=== PATIENT | female | born 1960 | race Hispanic/Latino ===

== ENCOUNTER → 2018-04-12 | Outpatient (CLI) | payer MEDICARE ==
[~2018-04-12] MED LIST: AEC81 PO; AMLO5TAB7 PO; CILO50TA PO; CLOP75TA32 PO; EZET10 PO; GLIP10TA9 PO; INSU3INS5 SQ; LEVO50 PO; LOSA100T20 PO; METF-527 PO; METO-408 PO; MOME17N NS; ROSU40 PO; SITA100T12 PO
== END | disposition home or self-care (01) ==
LOC: RAH 08:23
PROVIDERS: ATTEND Internal Medicine Nephrology
DX: K76.0 Fatty (change of) liver, not elsewhere classified (principal); I10 Essential (primary) hypertension
CPT/HCPCS: 76705

== ENCOUNTER → 2018-09-12 | Outpatient (CLI) | payer MEDICARE ==
[~2018-09-12] VITALS: Ht 157.5 cm; Wt 91.2 kg
[~2018-09-12] MED LIST changes: -AMLO5TAB7 PO; +AMLO5TAB9 PO; -LOSA100T20 PO; +LOSA100T58 PO; +REGADENOSON 0.4 MG/5 ML PF SYG IVP SCH
== END | disposition home or self-care (01) ==
LOC: SHCH 08:43
PROVIDERS: ATTEND Internal Medicine Cardiovascular Disease
DX: I99.8 Other disorder of circulatory system (principal); I10 Essential (primary) hypertension; I25.810 Atherosclerosis of coronary artery bypass graft(s) without angina pectoris
CPT/HCPCS: 78452; 93017; 96374; A9500 ×2; J2785

== ENCOUNTER → 2018-12-31 | Outpatient (CLI) | payer MEDICARE ==
[~2018-12-31] MED LIST changes: +IOHEXOL 350 MG/ML 100ML INFUS..BTL IV ONE; +IOHEXOL-350 50ML VIAL IV ONE; -REGADENOSON 0.4 MG/5 ML PF SYG IVP SCH
== END | disposition home or self-care (01) ==
LOC: RAH 07:40
PROVIDERS: ATTEND Internal Medicine Cardiovascular Disease
DX: I70.203 Unspecified atherosclerosis of native arteries of extremities, bilateral legs (principal); K44.9 Diaphragmatic hernia without obstruction or gangrene; N32.89 Other specified disorders of bladder; Z95.1 Presence of aortocoronary bypass graft; Z96.652 Presence of left artificial knee joint
CPT/HCPCS: 75635; Q9967 ×2

== ENCOUNTER 2019-02-25 06:11 | Day surgery (SDC) | payer MEDICARE ==
[2019-02-21 14:42] VITALS: BP 142/64
[2019-02-21 14:49] LABS: BASOPHILS % (AUTO) 0.6 % (0.0-5.0); HEMATOCRIT 40.1 % (36-48); MEAN CORPUSCULAR HEMOGLOBIN 30.2 pg (27.0-33.0); MEAN CORPUSCULAR HGB CONC 33.3 g/dL (32.0-36.0); MEAN CORPUSCULAR VOLUME 90.6 fL (79-99); NEUTROPHILS % (AUTO) 67.4 % (40.0-77.0); PLATELET COUNT (AUTO) 246 K/uL (130-400); RED BLOOD CELL COUNT(AUTO) 4.43 MIL/uL (4.00-5.50); RED CELL DISTRIBUTION WIDTH 12.9 % (11.0-15.5); WHITE BLOOD COUNT (AUTO) 6.7 K/uL (4.8-10.8)
[2019-02-21 14:58] LABS: INR 0.96 (0.85-1.15); PARTIAL THROMBOPLASTIN TIME 30.5 SEC (26.3-35.5); PROTHROMBIN TIME 10.1 SEC (9.6-11.6)
[2019-02-21 15:11] LABS: CREATININE 0.8 mg/dL (0.5-1.5); POTASSIUM 4.8 mmol/L (3.5-5.1)
[2019-02-21 16:17] LABS: APPEARANCE,URINE Clear (CLEAR); BILIRUBIN,URINE Negative (NEGATIVE); COLOR,URINE Yellow (YELLOW); GLUCOSE, URINE (UA) Negative (NEGATIVE); KETONES,URINE Negative (NEGATIVE); LEUKOCYTE ESTERASE ,URINE Trace (NEGATIVE); NITRATE,URINE Negative (NEGATIVE); OCCULT BLOOD,URINE Negative (NEGATIVE); PH,URINE 7.5 (5.0-8.0); PROTEIN,URINE Negative (NEGATIVE)
[2019-02-21 16:39] LABS: RBC,URINE 0-1 /HPF (0-1)
[2019-02-21 16:40] LABS: BACTERIA,URINE Rare /HPF (None Seen); SQUAMOUS EPITHELIAL CELL,UR Few /HPF (0-2)
--- NOTE | 2019-02-24 10:18 | NUR ---
ABNORMAL UA ABNORMAL UA RESULTS REPORTED TO BINH WAGGONER. NO FURTHER ORDERS GIVEN, MAY PROCEED WITH PLANNED PROCEDURE.
[~2019-02-25] VITALS: Ht 154.9 cm; Wt 88.0 kg
[2019-02-25] VITALS (8 sets, daily range): BP systolic 116–159; BP diastolic 57–80
[~2019-02-25 06:11] MED LIST changes: -EZET10 PO; +EZET10TA13 PO; +INSLAN SQ; -INSU3INS5 SQ; -IOHEXOL 350 MG/ML 100ML INFUS..BTL IV ONE; -IOHEXOL-350 50ML VIAL IV ONE; +SODIUM CHLORIDE 0.9% 500ML 500 ML IV SCH
[2019-02-25] MEDS ORDERED: EZET10TA48 PO (09:03)
[2019-02-25] MEDS ORDERED: RANO10003 PO (09:03)
[2019-02-25] MEDS ORDERED: METF-446 PO (09:03)
[2019-02-25] MEDS ORDERED: ROSU40TA21 PO (09:03)
[2019-02-25] MEDS ORDERED: LEVO50TA11 PO (09:03)
[2019-02-25] MEDS ORDERED: SITA100T12 PO (09:03)
[2019-02-25] MEDS ORDERED: CILO50TA PO (09:03)
[2019-02-25] MEDS ORDERED: ASPI-555 PO (09:03)
[2019-02-25] MEDS ORDERED: CLOP75TA14 PO (09:03)
[2019-02-25] MEDS ORDERED: PINDOLOL PO (09:03)
[2019-02-25] MEDS ORDERED: LOSA100T58 PO (09:03)
[2019-02-25] MEDS ORDERED: SODIUM CHLORIDE 0.9% 1000ML 1,000 ML IV ONE (09:19)
[2019-02-25] MEDS ORDERED: NITROGLYCERIN 5 MG/ML 10 ML VIAL IV ONE (10:03)
[2019-02-25] MEDS ORDERED: IOHEXOL-350 75 ML VIAL IV ONE (10:04)
[2019-02-25] MEDS ORDERED: LIDOCAINE HCL 2% 20ML ONE (10:04)
[2019-02-25] MEDS ORDERED: IODIXANOL 320 MG/ML 100 ML VIAL ONE ×2 (10:05→11:46)
[2019-02-25] MEDS ORDERED: MIDAZOLAM HCL 1 MG/ML 2ML VIAL ONE ×2 (10:22→11:41)
[2019-02-25] MEDS ORDERED: MEPERIDINE-PF 25 MG/ML SYG ONE ×2 (10:22→11:41)
[2019-02-25] MEDS ORDERED: HEPARIN SODIUM 1000UNIT/ML 10ML VIAL ONE (11:09)
[2019-02-25] MEDS ORDERED: SODIUM CHLORIDE 0.9% 1000ML 1,000 ML IV SCH (12:26)
[2019-02-25] MEDS ORDERED: DEXTROSE 50%-WATER 50 ML DISP.SYRIN IV PRN (12:30)
[2019-02-25] MEDS ORDERED: GLUCAGON 1MG KIT 1 MG ML IM PRN (12:30)
--- NOTE | 2019-02-25 14:55 | NUR ---
GAVE REPORT TO TERRY LEPE RN NO CONCERNS VOICED
[2019-02-25] MEDS ORDERED: INSULIN HUMULIN R 100 UNIT/ML 3ML SQ SCH (16:30)
--- NOTE | 2019-02-25 18:30 | NUR ---
NURSING: PT IS AAOX3 NO C/O PAIN, STATES ONLY MILD DISCOMFORT TO RT GROIN PUNCTURE SITE, STATES IT FEELS SORE, INFORMED PT SHE WILL HAVE SMALL BRUISE, AND TENDERNESS IS COMMON S/P PROCEDURE. DRESSING TO CATH SITE HAS QUATER SIZE SCANT AMOUNT OF BLEEDING, NO OOZING OR HEMATOMA. EDUCATED PT AND SISTER ON WHAT TO LOOK OUT FOR IF THERE IS ACTIVE BLEEDING OR HEMATOMA,TO LAY FLAT, APPLY PRESSURE TO SITE AND TO CALL 911. BOTH VERBALIZED UNDERSTANDING. PT SITTING AT BEDSIDE, ABLE TO DRESS WITH ASSISTANCE FROM SISTER, DRIVEN HOME BY FAMILY.
== END 2019-02-25 18:30 | disposition home or self-care (01) ==
LOC: DAH 06:11
PROVIDERS: ATTEND Internal Medicine Cardiovascular Disease
DX: I70.212 Atherosclerosis of native arteries of extremities with intermittent claudication, left leg (principal); I25.10 Atherosclerotic heart disease of native coronary artery without angina pectoris; I10 Essential (primary) hypertension; E78.5 Hyperlipidemia, unspecified; E11.9 Type 2 diabetes mellitus without complications; M13.862 Other specified arthritis, left knee; M13.861 Other specified arthritis, right knee; M13.88 Other specified arthritis, other site; Z95.5 Presence of coronary angioplasty implant and graft; Z88.5 Allergy status to narcotic agent; Z79.01 Long term (current) use of anticoagulants; Z79.899 Other long term (current) drug therapy; Z79.4 Long term (current) use of insulin; Z79.82 Long term (current) use of aspirin; Z98.890 Other specified postprocedural states; Z96.652 Presence of left artificial knee joint; Z87.891 Personal history of nicotine dependence; Z82.49 Family history of ischemic heart disease and other diseases of the circulatory system; Z82.3 Family history of stroke
CPT/HCPCS: 36246; 36415; 71045; 75625; 75716; 75774; 80048; 81001; 82948 ×2; 85025; 85610; 85730; 93005; A4606; C1725 ×2; C1760; C1769 ×4; C1887; C1893; C1894 ×2; J1644 ×2; J2175 ×2; J2250 ×2; J3490 ×2; J7030; Q9967 ×3; 36247; 75630; 99156; 99157

== ENCOUNTER → 2020-01-01 | Outpatient (CLI) | payer MEDICARE ==
[~2020-01-01] MED LIST changes: -AEC81 PO; -AMLO5TAB9 PO; +ASPI-556 PO; +CLOP75TA14 PO; -CLOP75TA32 PO; -EZET10TA13 PO; +EZET10TA48 PO; -GLIP10TA9 PO; -LEVO50 PO; +LEVO50TA11 PO; +METF-446 PO; -METF-527 PO; -METO-408 PO; -MOME17N NS; +PINDOLOL PO; +RANO10003 PO; -ROSU40 PO; +ROSU40TA21 PO; -SODIUM CHLORIDE 0.9% 500ML 500 ML IV SCH
== END | disposition home or self-care (01) ==
LOC: SHCH 10:55
PROVIDERS: ATTEND Internal Medicine Cardiovascular Disease
DX: I65.23 Occlusion and stenosis of bilateral carotid arteries (principal); I11.9 Hypertensive heart disease without heart failure
CPT/HCPCS: 93306; 93356; 93880

== ENCOUNTER → 2020-10-04 | Outpatient (CLI) | payer MEDICARE ==
[~2020-10-04] MED LIST changes: +IOHEXOL 350 MG/ML 100ML INFUS..BTL IV ONE; +IOHEXOL-350 50ML VIAL IV ONE
== END | disposition home or self-care (01) ==
LOC: RAH 07:41
PROVIDERS: ATTEND Internal Medicine Cardiovascular Disease
DX: I70.293 Other atherosclerosis of native arteries of extremities, bilateral legs (principal); K44.9 Diaphragmatic hernia without obstruction or gangrene; K76.0 Fatty (change of) liver, not elsewhere classified; K42.9 Umbilical hernia without obstruction or gangrene; K57.30 Diverticulosis of large intestine without perforation or abscess without bleeding; Z95.820 Peripheral vascular angioplasty status with implants and grafts
CPT/HCPCS: 75635; Q9967 ×2

== ENCOUNTER 2022-02-26 16:36 | Emergency (ER) | payer OTHER, MEDICARE ==
[~2022-02-26] VITALS: Ht 157.5 cm; Wt 83.9 kg
[~2022-02-26 16:36] MED LIST changes: -IOHEXOL 350 MG/ML 100ML INFUS..BTL IV ONE; -IOHEXOL-350 50ML VIAL IV ONE
[2022-02-26 16:54] VITALS: BP 155/75
[2022-02-26 17:15] LABS: BASOPHILS % (AUTO) 0.3 % (0.0-5.0); EOSINOPHILS % (AUTO) 0.6 % (0.0-8.0); HEMATOCRIT 39.5 % (36-48); LYMPHOCYTES % (AUTO) 22.6 % (21.0-51.0); MEAN CORPUSCULAR HEMOGLOBIN 31.2 pg (27.0-33.0); MEAN CORPUSCULAR HGB CONC 34.9 g/dL (32.0-36.0); MEAN CORPUSCULAR VOLUME 89.4 fL (79-99); MONOCYTES % (AUTO) 10.6 % (3.0-13.0); NEUTROPHILS % (AUTO) 65.6 % (40.0-77.0); PLATELET COUNT (AUTO) 250 K/uL (130-400); RED BLOOD CELL COUNT(AUTO) 4.42 MIL/uL (4.00-5.50); RED CELL DISTRIBUTION WIDTH 11.5 % (11.0-15.5); WHITE BLOOD COUNT (AUTO) 6.9 K/uL (4.8-10.8)
[2022-02-26 17:26] LABS: CREATININE 1.1 mg/dL (0.5-1.5); POTASSIUM 4.4 mmol/L (3.5-5.1)
[2022-02-26 17:30] LABS: ALBUMIN 3.9 g/dL (3.5-5.0); TOTAL PROTEIN, SERUM 7.3 g/dL (6.0-8.3)
[2022-02-26] MEDS ORDERED: DOCU-116 PO (18:32)
== END 2022-02-26 18:42 | disposition home or self-care (01) ==
LOC: EDH 16:36
DX: K43.9 Ventral hernia without obstruction or gangrene (principal); K59.00 Constipation, unspecified; E11.9 Type 2 diabetes mellitus without complications; E78.00 Pure hypercholesterolemia, unspecified; Z88.5 Allergy status to narcotic agent; Z79.82 Long term (current) use of aspirin; Z79.84 Long term (current) use of oral hypoglycemic drugs; Z79.899 Other long term (current) drug therapy; Z95.1 Presence of aortocoronary bypass graft
CPT/HCPCS: 36415; 74176; 80053; 82550; 83690; 84484; 85025; 93005

== ENCOUNTER 2022-05-05 20:51 | Emergency (ER) | payer OTHER, MEDICARE ==
[~2022-05-05] VITALS: Ht 157.5 cm; Wt 93.9 kg
[~2022-05-05 20:51] MED LIST changes: +DOCU-116 PO
[2022-05-05 20:52] VITALS: BP 159/86
[2022-05-05] MEDS ORDERED: LIDOCAINE HCL-MPF 2% 5ML VIAL IM SCH (22:00)
[2022-05-05] MEDS ORDERED: TETANUS/DIPHTHERIA TOXOID [ADULT] 0.5 ML VIAL IM ONE (22:00)
[2022-05-05] MEDS ORDERED: CEPH500B PO (22:57)
== END 2022-05-05 23:11 | disposition home or self-care (01) ==
LOC: EDH 20:51
DX: S61.211A Laceration without foreign body of left index finger without damage to nail, initial encounter (principal); Z88.5 Allergy status to narcotic agent; E11.9 Type 2 diabetes mellitus without complications; E78.00 Pure hypercholesterolemia, unspecified; I10 Essential (primary) hypertension; I25.2 Old myocardial infarction; Z79.82 Long term (current) use of aspirin; Z79.899 Other long term (current) drug therapy; Z79.4 Long term (current) use of insulin; Z79.84 Long term (current) use of oral hypoglycemic drugs; Z98.890 Other specified postprocedural states; W01.0XXA Fall on same level from slipping, tripping and stumbling without subsequent striking against object, initial encounter; Y93.01 Activity, walking, marching and hiking; Y92.89 Other specified places as the place of occurrence of the external cause; Y99.8 Other external cause status
CPT/HCPCS: 12002; 90471; 90714

== ENCOUNTER 2022-05-06 13:35 | Emergency (ER) | payer OTHER, MEDICARE ==
[~2022-05-06] VITALS: Ht 157.5 cm; Wt 93.9 kg
[~2022-05-06 13:35] MED LIST changes: +CEPH500B PO
[2022-05-06 13:36] VITALS: BP 135/55
== END 2022-05-06 14:16 | disposition home or self-care (01) ==
LOC: EDH 13:35
DX: S61.211D Laceration without foreign body of left index finger without damage to nail, subsequent encounter (principal); E11.9 Type 2 diabetes mellitus without complications; E78.00 Pure hypercholesterolemia, unspecified; I10 Essential (primary) hypertension; I25.2 Old myocardial infarction; Z88.5 Allergy status to narcotic agent; Z79.899 Other long term (current) drug therapy; Z79.82 Long term (current) use of aspirin; Z79.84 Long term (current) use of oral hypoglycemic drugs; Z79.4 Long term (current) use of insulin; Z98.890 Other specified postprocedural states; X58.XXXD Exposure to other specified factors, subsequent encounter
CPT/HCPCS: 29130

== ENCOUNTER → 2022-07-04 | Outpatient (CLI) | payer OTHER, MEDICARE ==
[~2022-07-04] MED LIST changes: -CILO50TA PO; +CILO50TA2 PO; +CLOP-31 PO; -CLOP75TA14 PO; +IOHEXOL 350 MG/ML 100ML INFUS..BTL IV ONE
== END | disposition home or self-care (01) ==
LOC: RAH 09:25
PROVIDERS: ATTEND Internal Medicine Cardiovascular Disease
DX: I25.10 Atherosclerotic heart disease of native coronary artery without angina pectoris (principal); I73.9 Peripheral vascular disease, unspecified; I25.84 Coronary atherosclerosis due to calcified coronary lesion; Z96.652 Presence of left artificial knee joint
CPT/HCPCS: 75635; Q9967

== ENCOUNTER → 2023-02-15 | Outpatient (CLI) | payer OTHER, MEDICARE ==
[~2023-02-15] MED LIST changes: -IOHEXOL 350 MG/ML 100ML INFUS..BTL IV ONE; -LOSA100T58 PO; +LOSA100T59 PO
[2023-02-15 16:20] LABS: BASOPHILS # (AUTO) 0.05 K/uL (0.00-0.20); BASOPHILS % (AUTO) 0.9 % (0.0-5.0); EOSINOPHILS # (AUTO) 0.05 K/uL (0.00-0.70); EOSINOPHILS % (AUTO) 0.9 % (0.0-8.0); HEMATOCRIT 40.3 % (36-48); IMMATURE GRANULOCYTE ABSOLUTE 0.01 K/uL (0-1); LYMPHOCYTES # (AUTO) 1.2 K/uL (1.0-4.8); LYMPHOCYTES % (AUTO) 22.5 % (21.0-51.0); MEAN CORPUSCULAR HEMOGLOBIN 30.9 pg (27.0-33.0); MEAN CORPUSCULAR VOLUME 93.7 fL (79-99); MONOCYTES # (AUTO) 0.4 K/uL (0.1-1.0); MONOCYTES % (AUTO) 7.3 % (3.0-13.0); NEUTROPHILS # (AUTO) 3.8 K/uL (1.8-7.7); NEUTROPHILS % (AUTO) 68.2 % (40.0-77.0); PLATELET COUNT (AUTO) 265 K/uL (130-400); RED CELL DISTRIBUTION WIDTH 11.7 % (11.0-15.5); WHITE BLOOD COUNT (AUTO) 5.5 K/uL (4.8-10.8)
[2023-02-15 16:35] LABS: CREATININE 0.9 mg/dL (0.5-1.5); POTASSIUM 3.5 mmol/L (3.5-5.1)
[2023-02-15 16:37] LABS: INR 0.93 (0.85-1.15); PROTHROMBIN TIME 10.8 SEC (9.6-11.6)
[2023-02-15 16:39] LABS: PARTIAL THROMBOPLASTIN TIME 28.8 SEC (26.3-35.5)
== END | disposition home or self-care (01) ==
LOC: LAB 13:28
PROVIDERS: ATTEND Student in an Organized Health Care Education/Training Program
DX: I73.9 Peripheral vascular disease, unspecified (principal); I10 Essential (primary) hypertension; R42 Dizziness and giddiness; I25.10 Atherosclerotic heart disease of native coronary artery without angina pectoris; E11.9 Type 2 diabetes mellitus without complications; E78.5 Hyperlipidemia, unspecified; Z95.1 Presence of aortocoronary bypass graft; Z79.82 Long term (current) use of aspirin; Z79.02 Long term (current) use of antithrombotics/antiplatelets; Z79.899 Other long term (current) drug therapy; Z79.4 Long term (current) use of insulin
CPT/HCPCS: 36415; 80048; 85025; 85610; 85730

== ENCOUNTER → 2023-03-30 | Outpatient (CLI) | payer OTHER, MEDICARE ==
[2023-03-30 12:26] LABS: BASOPHILS # (AUTO) 0.02 K/uL (0.00-0.20); BASOPHILS % (AUTO) 0.4 % (0.0-5.0); EOSINOPHILS # (AUTO) 0.05 K/uL (0.00-0.70); HEMATOCRIT 38.7 % (36-48); IMMATURE GRANULOCYTE ABSOLUTE 0.01 K/uL (0-1); LYMPHOCYTES # (AUTO) 1.4 K/uL (1.0-4.8); LYMPHOCYTES % (AUTO) 28.2 % (21.0-51.0); MEAN CORPUSCULAR HEMOGLOBIN 31.8 pg (27.0-33.0); MEAN CORPUSCULAR HGB CONC 33.9 g/dL (32.0-36.0); MEAN CORPUSCULAR VOLUME 93.9 fL (79-99); MONOCYTES # (AUTO) 0.5 K/uL (0.1-1.0); MONOCYTES % (AUTO) 9.2 % (3.0-13.0); PLATELET COUNT (AUTO) 285 K/uL (130-400); RED BLOOD CELL COUNT(AUTO) 4.12 MIL/uL (4.00-5.50); RED CELL DISTRIBUTION WIDTH 11.3 % (11.0-15.5); WHITE BLOOD COUNT (AUTO) 4.9 K/uL (4.8-10.8)
[2023-03-30 12:37] LABS: INR < 0.93 (0.85-1.15); PROTHROMBIN TIME 10.7 SEC (9.6-11.6)
[2023-03-30 12:39] LABS: PARTIAL THROMBOPLASTIN TIME 28.8 SEC (26.3-35.5)
[2023-03-30 12:41] LABS: POTASSIUM 4.1 mmol/L (3.5-5.1)
== END | disposition home or self-care (01) ==
LOC: LAB 10:59
PROVIDERS: ATTEND Student in an Organized Health Care Education/Training Program
DX: I10 Essential (primary) hypertension (principal); I73.9 Peripheral vascular disease, unspecified; Z79.01 Long term (current) use of anticoagulants
CPT/HCPCS: 36415; 80048; 85025; 85610; 85730

== ENCOUNTER → 2024-11-10 | Outpatient (CLI) | payer OTHER, MEDICARE ==
[~2024-11-10] MED LIST changes: -ROSU40TA21 PO; +ROSU40TA88 PO
== END | disposition home or self-care (01) ==
LOC: SHCH 12:47
PROVIDERS: ATTEND Student in an Organized Health Care Education/Training Program
DX: I65.23 Occlusion and stenosis of bilateral carotid arteries (principal)
CPT/HCPCS: 93880